=== PATIENT | male | born 1980 | race Caucasian/White ===

== ENCOUNTER 2017-08-16 10:03 | Emergency (ER) | payer SELFPAY ==
[~2017-08-16] VITALS: Ht 180.3 cm; Wt 90.0 kg
[2017-08-16 10:06] VITALS: BP 133/68
[2017-08-16] MEDS ORDERED: FLUORESCEIN SODIUM 1MG/STRIP OP ONE (11:15)
[2017-08-16] MEDS ORDERED: TETRACAINE 0.5% OPHTH DROPS 4ML OP ONE (11:15)
== END 2017-08-16 13:54 | disposition home or self-care (01) ==
LOC: ER 10:34
DX: H10.9 Unspecified conjunctivitis (principal)
CPT/HCPCS: 99283; J7040

== ENCOUNTER 2018-03-17 22:33 | Emergency (ER) | payer SELFPAY ==
[~2018-03-17] VITALS: Ht 182.9 cm; Wt 100.0 kg
[2018-03-18 00:45] LABS: BASOPHILS % 0.3 % (0.0-2.0); EOSINOPHILS % 0.4 % (0.0-5.0); HEMATOCRIT. 46.5 % (42.0-52.0); HEMOGLOBIN. 15.9 g/dL (14.0-18.0); LYMPHOCYTES % 7.2 % (20.0-50.0); MEAN CORPUSCULAR HEMOGLOBIN 35.3 pg (28.0-32.0); MEAN CORPUSCULAR VOLUME 103.4 fL (80.0-94.0); MEAN PLATELET VOLUME 9.3 fl (7.4-10.4); MONOCYTES % 4.5 % (2.0-8.0); NEUTROPHILS % 87.6 % (40.0-76.0); PLATELET 242 x1000/uL (130-400); RED CELL DISTRIBUTION WIDTH 14.3 % (11.6-14.6)
[2018-03-18 00:51] LABS: CHLORIDE 106 mEq/L (98-107)
[2018-03-18 00:56] LABS: ETHANOL BLOOD 147 mg/dL
[2018-03-18 01:12] VITALS: BP 130/65
== END 2018-03-18 01:15 | disposition home or self-care (01) ==
LOC: ER 22:33
DX: T40.1X1A Poisoning by heroin, accidental (unintentional), initial encounter (principal); F10.129 Alcohol abuse with intoxication, unspecified; Y90.6 Blood alcohol level of 120-199 mg/100 ml; Y92.9 Unspecified place or not applicable; D72.829 Elevated white blood cell count, unspecified
CPT/HCPCS: 36415; 80053; 80307; 80329; 85025; 99283; G0482